=== PATIENT | male | born 1945 | race Caucasian/White ===

== ENCOUNTER 2021-04-26 16:59 | Emergency (ER) | payer MEDICARE ==
[~2021-04-26] VITALS: Ht 177.8 cm; Wt 88.9 kg
[~2021-04-26 16:59] MED LIST: ACETAMINOPHEN500 MG PO; ASPI81CH PO; ATOR10; ATOR40TA PO; ATOR80 PO; AZIT500 PO; Adult Low Dose81 MG PO; Amiodarone HCl200 MG PO; BP MEDICATION; Benicar Hct 401 EAC1 PO; CEPH500 PO; CHOL10002 PO; CLOM25; CODEINE-GUAIFE120 ML PO; Clomipramine HC25 MG PO; D3-20002000 UNIT PO; FERR325 PO; FURO40 PO; GLIM2 PO; Glucophage1000 MG PO; IRBHYD150; K-Dur10 MEQ PO; LISI20 PO; METF500 PO; Metoprolol Tar100 MG PO; Nifedical Xl30 MG PO; OLME5TAB PO; OXYACE5T PO; OXYC5 PO; Omeprazole20 M1 PO; PRED20 PO; PROM25 PO; TERA5 PO; Terazosin HCl10 MG PO
== END 2021-04-26 19:20 | disposition home or self-care (01) ==
LOC: ER 16:59
DX: M25.552 Pain in left hip (principal); M25.551 Pain in right hip; M25.512 Pain in left shoulder; M25.511 Pain in right shoulder; I10 Essential (primary) hypertension; E11.9 Type 2 diabetes mellitus without complications; Z79.899 Other long term (current) drug therapy; Z79.82 Long term (current) use of aspirin; Y09 Assault by unspecified means
CPT/HCPCS: 71046; 72100; 99283-25

== ENCOUNTER 2021-07-23 14:38 | Emergency (ER) | payer MEDICARE ==
[~2021-07-23] VITALS: Ht 177.8 cm; Wt 87.5 kg
[2021-07-23] MEDS ORDERED: DIAZ5 PO (15:48)
[2021-07-23] MEDS ORDERED: MEMA10 PO (15:48)
[2021-07-23] MEDS ORDERED: QUET25 PO (15:48)
[2021-07-23] MEDS ORDERED: SILD25T PO (15:49)
[2021-07-23] MEDS ORDERED: OLME20 PO (15:49)
[2021-07-23] MEDS ORDERED: POTA10T PO (15:50)
[2021-07-23] MEDS ORDERED: TERA5 PO (15:50)
[2021-07-23] MEDS ORDERED: Aspir 8181 MG PO (15:50)
[2021-07-23] MEDS ORDERED: THERA-D2000 UNIT PO (15:50)
[2021-07-23] MEDS ORDERED: CLOMIPRAMINE HC50 MG PO (15:51)
[2021-07-23] MEDS ORDERED: METO100 PO (15:51)
[2021-07-23] MEDS ORDERED: METF500 PO (15:51)
[2021-07-23] MEDS ORDERED: NIFE30ER PO (15:51)
== END 2021-07-23 16:14 | disposition home or self-care (01) ==
LOC: ER 14:38
DX: F41.9 Anxiety disorder, unspecified (principal); Z79.82 Long term (current) use of aspirin; Z79.899 Other long term (current) drug therapy; Z79.84 Long term (current) use of oral hypoglycemic drugs; I10 Essential (primary) hypertension; E11.9 Type 2 diabetes mellitus without complications
CPT/HCPCS: 99284

== ENCOUNTER 2023-06-16 15:45 | Emergency (ER) | payer MEDICARE ==
[~2023-06-16] VITALS: Ht 177.8 cm; Wt 68.0 kg
[~2023-06-16 15:45] MED LIST changes: +Aspir 8181 MG PO; +CARV6.25 PO; +CLOMIPRAMINE HC50 MG PO; +DIAZ5 PO; +DILT180 PO; +MEMA10 PO; +METO100 PO; +MIRALAX17 GM PO; +NIFE30ER PO; +OLME20 PO; +POTA10T PO; +SENNA LAXATIVE8.6 MG PO; +SEROQUEL XR300 MG PO; +SILD25T PO; +THERA-D2000 UNIT PO; +VITAMIN B-121000 MCG PO
[2023-06-16 16:01] VITALS: BP 157/100
[2023-06-16 16:28] LABS: BASOPHILS ABSOLUTE AUTO 0.06 K/mm3 (0.00-0.23); BASOPHILS PERCENT AUTO 1 % (0-2); EOSINOPHILS ABSOLUTE AUTO 0.26 K/mm3 (0.00-0.68); EOSINOPHILS PERCENT AUTO 3 % (0-6); Hematocrit 28.4 % (37.0-53.0); Hemoglobin 9.2 g/dL (13.5-17.5); IMMATURE GRAN ABSOLUTE AUTO 0.02 K/mm3 (0.00-0.10); IMMATURE GRAN PERCENT AUTO 0 % (0-1); LYMPHOCYTES ABSOLUTE AUTO 1.02 K/mm3 (0.84-5.20); LYMPHOCYTES PERCENT AUTO 13 % (21-46); MONOCYTES PERCENT AUTO 7 % (4-13); Mean Corpuscular HGB 26.4 pg (26.0-34.0); Mean Corpuscular HGB Conc 32.4 g/dL (31.5-36.5); Mean Corpuscular Volume 81 fL (80-100); Mean Platelet Volume 9.3 fL (9.1-12.4); NEUTROPHILS ABSOLUTE AUTO 5.81 K/mm3 (1.96-9.15); NEUTROPHILS PERCENT AUTO 76 % (41-73); Platelet Count 197 K/mm3 (150-400); RDW Coefficient Variation 14.2 % (11.7-14.2); RDW Standard Deviation 42.3 fL (35.1-46.3); Red Blood Cell Count 3.49 M/mm3 (4.30-5.90); White Blood Cell Count 7.67 K/mm3 (4.00-11.30)
[2023-06-16 16:57] LABS: Albumin/Globulin Ratio 0.8 (0.8-1.8); Bilirubin, Total 0.4 mg/dL (0.1-1.0); Bun/Creatinine Ratio 18.8 (12.0-20.0); Calcium, Blood 8.8 mg/dL (8.5-10.1); Creatinine, Blood 1.33 mg/dL (0.60-1.20); Globulin, Blood 3.8 g/dL (2.2-4.0); Potassium, Blood 3.4 mmol/L (3.5-5.5); Total Protein, Blood 6.8 g/dL (6.4-8.2)
[2023-06-16 18:13] LABS: Percent Saturation 9.4 % (20.0-50.0)
[2023-06-16 18:19] LABS: Source, Urine Clean Catch
[2023-06-16 18:37] LABS: Bilirubin, Urine Neg (Neg); Blood, Urine 3+ (Neg); Color, Urine Yellow (P-Yellow); Glucose Qualitative, Urine Neg (Neg); Ketones, Urine Neg (Neg); Leukocyte Esterase, Urine 1+ (Neg); Nitrite, Urine Neg (Neg); Protein, Urine 2+ (Neg); Specific Gravity, Urine 1.025 (1.003-1.022); Urobilinogen, Urine NORM (Normal)
[2023-06-16 18:46] LABS: Appearance, Urine Hazy (Clear)
[2023-06-16 18:48] LABS: Bacteria Mod /hpf; Hyaline Casts 0-2 /lpf (0-2); Squamous Epithelial Cells Not Seen /hpf (Few)
[2023-06-16] MEDS ORDERED: SENNA LAXATIVE8.6 MG PO (19:36)
[2023-06-16] MEDS ORDERED: CONSTULOSE10 GM/155 PO (19:36)
[2023-06-16] MEDS ORDERED: [UNRECOGNIZED DRUG - CODE] PO (19:36)
[2023-06-16] MEDS ORDERED: ADULT GLYCERIN1 EACH PR (19:36)
[2023-06-16] MEDS ORDERED: CEFP200 PO (19:38)
== END 2023-06-16 20:23 | disposition home or self-care (01) ==
LOC: ER 15:45
PROVIDERS: Physician Assistant; Student in an Organized Health Care Education/Training Program
DX: I12.9 Hypertensive chronic kidney disease with stage 1 through stage 4 chronic kidney disease, or unspecified chronic kidney disease (principal); E11.22 Type 2 diabetes mellitus with diabetic chronic kidney disease; N18.9 Chronic kidney disease, unspecified; K59.00 Constipation, unspecified; D64.9 Anemia, unspecified; K21.9 Gastro-esophageal reflux disease without esophagitis; E78.5 Hyperlipidemia, unspecified; Z87.891 Personal history of nicotine dependence
CPT/HCPCS: 51701; 51798; 74018; 80053; 81001; 82607; 82728; 82746; 83540; 83550; 85025; 87077; 87086; 87186; 96361; 96365; 99283-25; J0696; J7030